=== PATIENT | male | born 1960 | race African-American/Black ===

== ENCOUNTER → 2017-04-05 | Outpatient (CLI) | payer MEDICARE, OTHER ==
[~2017-04-05] MED LIST: ASPI81 PO; ATEN-100 PO; CLOP75 PO; FURO20TA PO; GABA600T OR; INTE100T OR; ISENTRESS PO; LISI-363 PO; RITO80S PO; SELZENTRY PO; VALA1TAB OR; ZOCO40TA PO; [UNRECOGNIZED DRUG - CODE] OR; truvada PO
--- NOTE | 2017-04-05 15:33 | RADRPT ---
EXAM DATE/TIME: 04/05/2017 15:00 [place] COMPARISON: No previous studies available for comparison. INDICATIONS : Headaches for months, rule out toxoplasmosis. RADIATION DOSE: 56.35 CTDIvol (mGy) MEDICAL HISTORY : Cardiovascular disease. SURGICAL HISTORY : None. ENCOUNTER: Initial ACUITY: 1 month PAIN SCALE: 5/10 LOCATION: cranial TECHNIQUE: Multiple contiguous axial images were obtained of the head. Using automated exposure control and adj ustment of the mA and/or kV according to patient size, radiation dose was kept as low as reasonably a chievable to obtain optimal diagnostic quality images. DICOM format image data is available electro nically for review and comparison. FINDINGS: 1 cm high attenuation smoothly marginated lesion is seen involving the anterior superior portion of t he third ventricle consistent with a colloid cyst. Ventricles are normal in size. Periventricular low attenuation change noted. 2 small partially calcified nodules are seen involving the posterior intra cranial fossa. These measure 1.1 cm on the right and 0.9 cm on the left. It abuts the inner calvarium . The remaining brain parenchyma is unremarkable. Mucosal thickening is seen involving the right sphe noid sinus and a solitary right ethmoid air cell. Remaining paranasal sinuses are clear. A mucus rete ntion cyst is seen involving the right frontal sinus. Calvarium is intact the CONCLUSION: 1. No acute intracranial abnormality. 2. 2 small partially calcified lesions involving the posterior cranial fossa characteristic of mening iomas. 3. 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 4. Chronic small vessel ischemic change. Thierno Thompson Jr., MD on April 05, 2017 at 15:26 Board Certified Radiologist. This report was verified electronically.
== END ==
LOC: HLAB 14:50
PROVIDERS: ATTEND Internal Medicine Infectious Disease
DX: R51 Headache (principal)
CPT/HCPCS: 70450